=== PATIENT | female | born 1960 | race African-American/Black ===

== ENCOUNTER 2020-09-15 14:35 | Emergency (ER) | payer OTHER ==
[~2020-09-15] VITALS: Ht 167.6 cm; Wt 81.7 kg
[2020-09-15 15:18] LABS: ABSOLUTE NEUTROPHILS 4.1 thou/uL (1.4-8.2); BASOPHILS 0.6 % (0.0-2.0); HEMATOCRIT 39.5 % (37.0-47.0); HEMOGLOBIN 12.6 gm/dL (12.0-15.0); LYMPHOCYTES 10.5 % (24.0-44.0); MCH 23.6 pg (26.0-34.0); MCV 73.7 fL (80.0-100.0); PLATELET COUNT 281 thou/uL (150-400); POLYS 81.9 % (36.0-66.0); RBC 5.36 mil/uL (4.20-5.00); RDW 14.5 % (10.5-14.5); WBC 5.1 thou/uL (4.0-11.0)
--- NOTE | 2020-09-15 15:22 | EKG ---
[place] [address] [facility] [place] [address] ELECTROCARDIOGRAM REPORT Name: PREET REYES Room #: [facility]..#: [id number] Admission: Attend Phys: Discharge: Date of : 58 Report #: [id number] [facility] ED Test Date: 2020-09-15 Test Time: 14:58:13 Pat Name: PREET REYES Department: Room: Gender: F Client Service Administrator: LISSETT : 1960 Requested By: Griffin Platt Order Number: [id number] MD: Carlos Hugo Measurements Intervals [place] Rate: 78 P: 60 MN: 170 QRS: -46 QRSD: 95 T: 32 QT: 367 QTc: 419 Interpretive Statements Sinus rhythm Left anterior fascicular block Abnormal R-wave progression, late transition No previous ECG available for comparison Electronically Signed On 09-15-2020 15:22:36 CDT by Carlos Hugo [email or web address] <ELECTRONICALLY SIGNED> By: Carlos Hugo MD, [facility] 09/15/20 1522 1458 1458 Carlos Hugo MD, FACC /EPI
[2020-09-15 15:27] LABS: ANION GAP 12 mmol/L (7-16); BUN 10 mg/dL (7-18); CHLORIDE 101 mmol/L (98-107); CO2 24 mmol/L (21-32); CREATININE 0.9 mg/dL (0.6-1.0); GLUCOSE 110 mg/dL (74-106); POTASSIUM 3.6 mmol/L (3.5-5.1); SODIUM 137 mmol/L (136-145)
[2020-09-15 15:37] LABS: ALBUMIN 3.9 g/dL (3.4-5.0); LIPASE 45 U/L (73-393); SGOT 15 U/L (15-37); SGPT 20 U/L (14-59); TOTAL BILIRUBIN 0.7 mg/dL (0.2-1.0); TOTAL PROTEIN 7.8 g/dL (6.4-8.2); TROPONIN-I <0.06 ng/mL (<0.06)
[2020-09-15 15:42] LABS: APTT 30.2 Seconds (24.5-32.8); INR 1.02; PROTIME 11.1 Seconds (9.3-11.4)
[2020-09-15 16:24] VITALS: BP 139/70
== END 2020-09-15 16:24 | disposition home or self-care (01) ==
LOC: ER 14:35
PROVIDERS: Emergency Medicine
DX: R07.9 Chest pain, unspecified (principal); M79.10 Myalgia, unspecified site; I10 Essential (primary) hypertension; Z88.2 Allergy status to sulfonamides